=== PATIENT | female | born 1945 | race Caucasian/White ===

== ENCOUNTER 2016-10-24 12:04 | Emergency (ER) | payer MEDICARE, OTHER ==
[2016-10-24 12:18] VITALS: BP 167/84
--- NOTE | 2016-10-24 12:19 | EDM.PDOC ---
ED HPI GENERAL MEDICAL PROBLEM - General Chief Complaint: Neuro Symptoms/Deficits Stated Complaint: R SIDE FACIAL NUMBNESS Time Seen by Provider: 10/24/16 12:11 Source of Information: Reports: Patient, Family (spouse) History Limitations: Reports: No Limitations - History of Present Illness INITIAL COMMENTS - FREE TEXT/NARRATIVE: Patient awoke with right facial weakness this morning. She noticed initially when she looked in the mirror to put her makeup on that she could not close her right eye all the way. Appreciated some right-sided facial weakness. It is not affected her speech. She is not drooling. She did have a pain intermittently in her right ear over the last day. The remainder of her neural exam is completely normal in terms of no loss of vision no headache no weakness. She was out shopping and driving her motor vehicle this morning with no problems She is already in a Solu-Medrol Dosepak that she started 2 days ago for a generalized rash similar to poison kylie/ poison sumac. Onset: Today Duration: Hour(s): (Awoke with symptoms.) Location: Reports: Face (Right hemifacial weakness.) Quality: Reports: Other (Weakness of the right face, particularily the orbicularis oculi muscles and orbicular loyda muscles. Only noted when you ask her to showing her you her teeth. ) Improves with: Reports: None Worsens with: Reports: None Context: Reports: Other (Awoke with symptoms.) Associated Symptoms: Reports: Weakness (As described above right hemifacial muscles.). Denies: No Other Symptoms, Confusion, Chest Pain, cough w sputum, Diaphoresis, Fever/Chills, Headaches, Loss of Appetite, Malaise, Nausea/Vomiting , Rash, Seizure, Shortness of Breath, Syncope Treatments SUPERINTENDENT LOGGING: Reports: Other (see below) (None.) - Related Data Allergies Allergy/AdvReac Type Severity Reaction Status Date / Time meclofenamic acid Allergy Rash Verified 10/24/16 12:09 [From [facility]] propoxyphene [From [facility]] Allergy Stomach Verified 10/24/16 12:09 Ache Home Meds: Home Meds valACYclovir [Valtrex] 1,000 mg PO TID #21 tablet 10/24/16 [Rx] Social & Family History - Living Situation & Occupation Living situation: Reports: Occupation: Retired ED ROS GENERAL - Review of Systems Review Of Systems: See Below Constitutional: Reports: No Symptoms HEENT: Reports: Ear Pain, Other (Appreciates trouble closing her right eye all the way) Respiratory: Reports: No Symptoms (Had intermittent right ear pain yesterday not today.) Cardiovascular: Reports: No Symptoms Endocrine: Reports: No Symptoms GI/Abdominal: Reports: No Symptoms : Reports: No Symptoms Musculoskeletal: Reports: No Symptoms Skin: Reports: No Symptoms Neurological: Reports: Other (Appreciates inability to close her right eye all way. I.e. she cannot squint. Appreciates right facial weakness when she looks in the mirror and smiles.) Psychiatric: Reports: No Symptoms Hematologic/Lymphatic: Reports: No Symptoms Immunologic: Reports: No Symptoms ED EXAM, NEURO - Physical Exam Exam: See Below Exam Limited By: No Limitations General Appearance: Alert, WD/WN, No Apparent Distress Eye Exam: Right Eye: Periorbital Changes (Patient has obvious weakness of the right orbicularis oculi muscles and inability to close her right eyelid completely.), Bilateral Eye: PERRL Ears: Normal External Exam, Normal TMs Nose: Normal Inspection Throat/Mouth: Normal Inspection, Normal Lips, Normal Oropharynx, Other Head Exam: Atraumatic, Normocephalic Neck: Normal Inspection, Supple, Non-Tender, Full Range of Motion Respiratory/Chest: No Respiratory Distress, Lungs Clear, Normal Breath Sounds, No Accessory Muscle Use, Crackles Cardiovascular: Regular Rate, Rhythm, No Gallop Neurological: Alert, Normal Mood/Affect, Normal Dorsiflexion, Normal Gait, Normal Reflexes, Oriented x 3, Other (Normal finger to nose. No pronator drift. Normal rapid alternating movements. She has inability to close her right eyelid completely and has mild right-sided facial weakness on smiling. She appreciates decreased sensation in the right francheska-face over her cheek. I.e. she has seventh nerve palsy). No: CN II-XII Intact DTR: 2+: Bicep (R), Bicep (L), Patella (R), Patella (L) Back Exam: Normal Inspection Extremities: Normal Inspection Psychiatric: Normal Affect, Normal Mood Skin Exam: Warm, Dry, Intact, Normal Color Course - Vital Signs Last Recorded V/S: Last Vital Signs Temp 35.6 C 10/24/16 12:10 Pulse 70 10/24/16 12:10 Resp 16 10/24/16 12:10 BP 167/84 H 10/24/16 12:10 Pulse Ox 95 10/24/16 12:10 - Radiology Interpretation Free Text/Narrative:: 71-year-old female presents to the ED with appreciable weakness of her right side of her face. She appreciated this morning when she was getting ready for the day i.e. putting on makeup that her right eye was a little droopy and that she could not close her right eye lid all the way. She couldn't scrunch upper eye. She then appreciated some right facial weakness at the corner of her right mouth. No drooling. His any headache. She did have some right ear pain yesterday but was intermittent but not today. The remainder of the neuro exam is completely normal. 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 She is already on a Solu-Medrol Medrol Dosepak which she started 2 days ago took a second dose this morning. This is for a rash that is fairly generalized similar to poison sumac or poison kylie. Will be treated with Mchugh's 620 g 3 times daily for the next week and she'll pear picker some Lacri-Lube or refresh lubricant ointment to place in her right eye and double patched closed overnight until she regains function of her eyelid on the right side. Advise follow-up with her primary care physician Dr. Lopez in 9 days time. Departure - Departure Time of Disposition: 12:22 Disposition: Home, Self-Care 01 Condition: Fair Clinical Impression: Right-sided Mchugh's palsy - Discharge Information Prescriptions: valACYclovir [Valtrex] 1,000 mg PO TID #21 tablet Referrals: Baljinder Lopez MD [Primary Care Provider] - Additional Instructions: Evaluation in the emergency room today in regards to development of right sided facial weakness particularly affecting eye closure and slight droop at the right side of the mouth. Remainder the neurological exam is normal. Decreased sensation in the right side of the face in the distribution of the seventh cranial nerve. 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 Treatment is to keep the eye closed during the night is to double patch and tape the eye closed with refresh lubricant or Lacri-Lube ointment in the lower eyelid at bedtime. Artificial tears should be used throughout the day to keep the eye moist with the cornea does not dry out. I symptoms usually last anywhere between 7 and 21 days. Treatment is antiviral medication Valtrex 1 g 3 times daily for the next week and continue your Solu- Medrol Dosepak that you're already taking. Suggest follow-up with Dr. Christianson 9 days time.
== END 2016-10-24 12:45 | disposition home or self-care (01) ==
LOC: JD.ED 12:04
DX: G51.0 Bell's palsy (principal); Z88.8 Allergy status to other drugs, medicaments and biological substances
CPT/HCPCS: 99283; 99284

== ENCOUNTER 2023-05-30 19:26 | Emergency (ER) | payer MEDICARE, OTHER ==
[2023-05-30] MEDS ORDERED: Sodium Chloride 0.9% 10 ML Syringe FLUSH PRN (19:42)
[2023-05-30 19:57] LABS: BASOPHILS PERCENT AUTO 0.4 % (0.0-1.0); EOSINOPHILS ABSOLUTE AUTO 0.1 K/mm3 (0.0-0.4); EOSINOPHILS PERCENT AUTO 2.8 % (0.0-6.0); HEMATOCRIT 43.2 % (37.0-47.0); HEMOGLOBIN 14.4 gm/dl (12.0-16.0); IMMATURE GRAN ABSOLUTE AUTO 0.02 K/mm3 (0.00-0.05); IMMATURE GRAN PERCENT AUTO 0.4 % (0.0-0.4); LYMPHOCYTES ABSOLUTE AUTO 1.1 K/mm3 (1.0-4.8); LYMPHOCYTES PERCENT AUTO 22.6 % (24.0-44.0); MEAN CORPUSCULAR HEMOGLOBIN 29.8 pg (28.0-32.0); MEAN CORPUSCULAR HGB CONC 33.3 g/dl (32.0-36.0); MEAN CORPUSCULAR VOLUME 89.3 fl (83.0-99.0); MEAN PLATELET VOLUME 9.8 fl (9.4-12.3); MONOCYTES ABSOLUTE AUTO 0.6 K/mm3 (0.0-0.8); MONOCYTES PERCENT AUTO 11.2 % (0.0-8.0); NEUTROPHILS ABSOLUTE AUTO 3.1 K/mm3 (1.8-7.7); NEUTROPHILS PERCENT AUTO 62.6 % (41.0-71.0); PLATELET COUNT,PLT 237 K/mm3 (150-400); RED BLOOD CELL COUNT 4.84 M/mm3 (4.10-5.30); WHITE BLOOD CELL COUNT,WBC 5.01 K/mm3 (3.9-11.3)
[2023-05-30 20:28] LABS: INR 1.01; PROTHROMBIN TIME 10.8 SECONDS (9.7-12.0)
[2023-05-30 20:29] LABS: PTT,PARTIAL THROMBOPLSTIN TIME 27.3 SECONDS (21.7-31.4)
[2023-05-30 20:53] LABS: A/G RATIO 1.2 (1-2); ALANINE AMINOTRANSFERASE,ALT 20 U/L (14-59); ALBUMIN 3.8 g/dl (3.4-5.0); ALKALINE PHOSPHATASE 77 U/L (46-116); ANION GAP 13.6 (5-15); ASPARTATE AMNIOTRANSFERASE,AST 20 U/L (15-37); BILIRUBIN TOTAL 0.7 mg/dL (0.2-1.0); BLOOD UREA NITROGEN,BUN 24 mg/dL (7-18); BUN/CREATININE RATIO 21.8 (14-18); CALCIUM 9.4 mg/dL (8.5-10.1); CARBON DIOXIDE,CO2 29 mEq/L (21-32); CHLORIDE,CL 104 mEq/L (98-107); CREATININE 1.1 mg/dL (0.55-1.02); ESTIMATED GFR 52 mL/min (>60); GLUCOSE RANDOM 146 mg/dL (70-99); POTASSIUM,K 3.6 mEq/L (3.5-5.1); PROTEIN TOTAL,TP 7.1 g/dl (6.4-8.2); SODIUM,NA 143 mEq/L (136-145)
[2023-05-30 21:03] LABS: TROPONIN I HIGH SENSITIVITY 65 pg/mL (<=51)
[2023-05-30] MEDS: Morphine 4 MG/ML Syringe IVPUSH ONE (22:17)
[2023-05-30] MEDS: Sodium Chloride 0.9% 100 ML IV SCH (22:24)
[2023-05-30] MEDS ORDERED: Heparin Sodium/D5W 25,000 UNITS/500 ML BAG IV SCH (22:30)
[2023-05-30] MEDS: Sodium Chloride 0.9% 10 ML Syringe FLUSH ONE (22:32)
[2023-05-30] MEDS: Iopamidol 755 Mg/ML 100 ML Bottle IVPUSH ONE (22:32)
[2023-05-31] MEDS: Heparin Sodium 5,000 Units/ML Vial IVPUSH ONE (00:34)
[2023-05-31 02:15] VITALS: BP 116/67; PULSE 73
== END 2023-05-31 02:17 ==
LOC: JD.ED 19:26
DX: I21.4 Non-ST elevation (NSTEMI) myocardial infarction (principal); I71.21 Aneurysm of the ascending aorta, without rupture; I10 Essential (primary) hypertension; E78.00 Pure hypercholesterolemia, unspecified; K21.9 Gastro-esophageal reflux disease without esophagitis; Z88.8 Allergy status to other drugs, medicaments and biological substances; Z79.82 Long term (current) use of aspirin; Z79.899 Other long term (current) drug therapy
CPT/HCPCS: 36415; 71275; 72191; 74175; 80053; 83880; 84484; 85025; 85610; 85730; 93005; 96374; 99285; J1644; J3490; Q9967; 93010

== ENCOUNTER 2024-02-03 09:44 | Day surgery (SDC) | payer MEDICARE, OTHER ==
[~2024-02-03 09:44] MED LIST: HYDROmorphone 0.5 MG/0.5 ML Syringe IVPUSH PRN; Midazolam 1 MG/ML 2 ML SDV ONE; Ropivacaine 0.5% 5 MG/ML 30 ML SDV ONE; Sodium Chloride 0.9% 10 ML Syringe FLUSH PRN
[2024-02-03] MEDS ORDERED: Phenylephrine 1% 10 MG/ML SDV ONE (10:06)
[2024-02-03] MEDS ORDERED: ePHEDrine 50 MG/ML SDV ONE (10:06)
[2024-02-03] MEDS: Lactated Ringers 1,000 ML IV SCH (10:20)
[2024-02-03] MEDS ORDERED: Propofol 200 MG/20 ML SDV ONE (11:12)
[2024-02-03] MEDS ORDERED: ceFAZolin 2 GM Vial ONE (11:51)
[2024-02-03] MEDS ORDERED: Esmolol 100 MG/10 ML SDV ONE (12:01)
[2024-02-03] MEDS ORDERED: Labetalol 100 MG/20 ML MDV ONE (12:09)
[2024-02-03] MEDS ORDERED: fentaNYL 100 MCG/2 ML SDV ONE (12:26)
[2024-02-03] MEDS: Morphine 8 MG, EPINEPHrine 0.3 MG, Cefuroxime 750 MG, Ketorolac 30 MG, Sodium Chloride ... PRN (12:43)
[2024-02-03] MEDS: Vancomycin 1 GM SDV ONE (12:48)
[2024-02-03] MEDS: Tranexamic Acid 1,000 MG/10 ML Vial ONE (12:48)
[2024-02-03] MEDS: fentaNYL 100 MCG/2 ML SDV IVPUSH PRN (13:31)
[2024-02-03] MEDS: Ondansetron 4 MG/2 ML SDV IVPUSH PRN (14:21)
[2024-02-03] MEDS: Scopalamine 1mg/3day Transdermal Patch TOP ONE (16:10)
[2024-02-03] MEDS: Sodium Chloride 0.9% 10 ML Syringe FLUSH SCH (19:41)
[2024-02-04] MEDS: Acetaminophen/HYDROcodone 325-5 MG Tab PO PRN (04:44)
[2024-02-04] MEDS: Ondansetron 4 MG Tab.DIS PO ONE ×2 (10:47→11:02)
[2024-02-04 11:21] VITALS: BP 138/74; PULSE 84
[2024-02-06] MEDS ORDERED: [UNRECOGNIZED DRUG - OTHER] TRDERM ONE (16:15)
== END 2024-02-04 11:25 | disposition home or self-care (01) ==
LOC: JD.SDS 09:44 → JD.MS 18:33 → JD.SDS 02-04 11:25
PROVIDERS: ATTEND Orthopaedic Surgery
DX: M17.11 Unilateral primary osteoarthritis, right knee (principal); I10 Essential (primary) hypertension; K21.9 Gastro-esophageal reflux disease without esophagitis; E78.00 Pure hypercholesterolemia, unspecified; I25.10 Atherosclerotic heart disease of native coronary artery without angina pectoris; Z79.899 Other long term (current) drug therapy
CPT/HCPCS: 0055T; 27447; 73560; 97161; 97530; A9270; C1713; C1776; J0171; J0690; J0697; J1885; J1920; J2250; J2272; J2371; J2405; J2704; J2795; J3010; J3490; J7120; 01402; 64447; 99100